=== PATIENT | female | born 1925 | race Caucasian/White ===

== ENCOUNTER → 2017-06-08 | Outpatient (CLI) | payer MEDICARE, OTHER ==
[~2017-06-08] MED LIST: ADULT LOW DOSE81 MG PO; AMLODIPINE; AMOXIL 875 MG875 M1 PO; APAP500; ATENOLOL 50 MG50 M1 PO; ATENOLOL 50MG T50 MG PO; AUGMENTIN 875-1 EACH PO; CEFDINIR300 MG PO; CENTRUM SILVER1 EAC1 PO; CENTRUM SILVER1 EAC4 PO; CIPROFLOXACIN500 M1 PO; CIPROFLOXACIN500 M3 PO; CITRACAL + D C1 EACH PO; CITRUCEL500 MG PO; CRANBERRY200 MG PO; DARVOCET-N 1001 EACH PO; FISH OIL 1,001000 M1 PO; FISHOIL; FISHOIL PO; FLAGYL500 MG; FLAGYL500 MG PO; GABAPENTIN; GINKGO BILOBA120 MG PO; GLUCOPHAGE XR500 MG PO; HYDROCODON-ACE1 EAC7 PO; HYDROCODONE-AP1 EAC6 PO; K-DUR10 ME1 PO; KLOR-CON; LEVAQUIN 250 M250 MG PO; LEVOTHROID; LEVOTHYROXIN0.075 MG PO; LEVOTHYROXINE0.05 MG PO; LISINOPRIL; LISINOPRIL40 MG PO; LUTEIN20 M1 PO; LYRICA150 MG PO; MACROBID; MACRODANTIN50 MG PO; MAGNES; METFORMIN; MUCINEX600 MG PO; NEURONTIN 300300 M1 PO; NEXIUM40 MG PO; NORCO 5-325 TA1 EACH PO; NORVASC 5 MG TAB5 MG PO; PREDNISONE 10 M10 M1 PO; PREDNISONE 10 M10 MG PO; PROBIOTIC1 EAC1 PO; PROTONIX 20 MG20 M1 PO; RANITIDINE 150150 M1 PO; SIMVASTATIN; TYLENOL PM EX-1 EACH PO; VENTOLIN HFA INH8 GM INH; VITAMIN B-1100 M1 PO; VITAMIN B-122000 MC1 PO; VITAMIN D; VITAMIN D5000 UNI1 PO; ZOCOR 20 MG TAB20 M1 PO; ZOFRAN 4 MG ORAL4 M1 DIS; ZYVOX600 MG PO
== END ==
LOC: M.RAD 15:24
DX: R05 Cough (principal); R06.02 Shortness of breath; J18.9 Pneumonia, unspecified organism; J44.9 Chronic obstructive pulmonary disease, unspecified

== ENCOUNTER → 2017-06-29 | Outpatient (CLI) | payer MEDICARE, OTHER | LOC: M.RAD 13:31 | DX: J43.9 Emphysema, unspecified (principal) ==

== ENCOUNTER → 2017-08-06 | Outpatient (CLI) | payer MEDICARE, OTHER | LOC: M.RAD 13:43 | DX: I70.0 Atherosclerosis of aorta (principal); J18.9 Pneumonia, unspecified organism; J98.2 Interstitial emphysema ==

== ENCOUNTER 2017-08-22 16:24 | Inpatient (IN) | payer MEDICARE, OTHER ==
[~2017-08-22] VITALS: Ht 152.4 cm; Wt 58.1 kg
[~2017-08-22 16:24] MED LIST changes: -AMOXIL 875 MG875 M1 PO; -AUGMENTIN 875-1 EACH PO; -CEFDINIR300 MG PO; -LUTEIN20 M1 PO; -MUCINEX600 MG PO; -PREDNISONE 10 M10 MG PO; -PROBIOTIC1 EAC1 PO; -PROTONIX 20 MG20 M1 PO; -RANITIDINE 150150 M1 PO; -TYLENOL PM EX-1 EACH PO; -VENTOLIN HFA INH8 GM INH; -VITAMIN B-1100 M1 PO; -VITAMIN B-122000 MC1 PO; -VITAMIN D5000 UNI1 PO; -ZYVOX600 MG PO
[2017-08-22 16:30] VITALS: BP 130/58
[2017-08-22] MEDS ORDERED: RANITIDINE 150150 M1 PO (16:37)
[2017-08-22] MEDS ORDERED: PROBIOTIC1 EAC1 PO (16:54)
[2017-08-22] MEDS ORDERED: LUTEIN20 M1 PO (16:54)
[2017-08-22] MEDS ORDERED: VITAMIN B-122000 MC1 PO (16:56)
[2017-08-22] MEDS ORDERED: VITAMIN D5000 UNI1 PO (16:57)
[2017-08-22] MEDS ORDERED: VITAMIN B-1100 M1 PO (16:57)
[2017-08-22] MEDS ORDERED: TYLENOL PM EX-1 EACH PO (16:58)
[2017-08-22 17:07] LABS: ABSOLUTE EOSINOPHILS 0.2 thou/uL (0.0-0.7); ABSOLUTE LYMPHOCYTES 2.1 thou/uL (0.8-5.3); ABSOLUTE MONOCYTES 0.9 thou/uL (0.0-1.2); ABSOLUTE NEUTROPHILS 11.9 thou/uL (1.6-8.1); BASOPHILS 0.2 %; EOSINOPHILS 1.3 %; HEMATOCRIT 44.3 % (37.0-47.0); HEMOGLOBIN 14.3 gm/dL (12.0-15.0); LYMPHOCYTES 13.7 %; MCH 30.6 pg (26.0-34.0); MCHC 32.2 g/dL (28.0-37.0); MCV 94.9 fL (80.0-100.0); MONOCYTES 6.2 %; MPV 7.4 fl. (7.2-11.1); NUCLEATED RBCS 0 /100WBC; PLATELET COUNT* 172 thou/uL (150-400); POLYS 78.6 %; RBC 4.67 mil/uL (4.20-5.00); RDW-CV 13.7 % (10.5-14.5); WBC 15.2 thou/uL (4.0-11.0)
[2017-08-22 17:13] LABS: APTT 27.8 Seconds (25.0-31.3)
[2017-08-22 17:14] LABS: ANION GAP 4 mmol/L (7-16); BUN 20 mg/dL (7-18); CALCIUM 8.8 mg/dL (8.5-10.1); CHLORIDE 105 mmol/L (98-107); CO2 34 mmol/L (21-32); CREATININE 0.9 mg/dL (0.6-1.3); GLUCOSE 131 mg/dL (70-99); POTASSIUM 4.4 mmol/L (3.5-5.1); SODIUM 143 mmol/L (136-145)
[2017-08-22 17:16] LABS: BE 3.6 mmol/L (-2 to +3); HCO3 29.6 mmol/L (22.0-26.0); pH 7.388 (7.340-7.450)
[2017-08-22 17:20] LABS: PCO2 50.3 mmHg (35.0-45.0)
[2017-08-22] MEDS ORDERED: PROTONIX 20 MG20 M1 PO (17:22)
[2017-08-22 17:25] LABS: ALBUMIN 3.7 g/dL (3.4-5.0); ALKALINE PHOSPHATASE 58 U/L (46-116); MAGNESIUM 1.9 mg/dL (1.8-2.4); NT-PRO BRAIN NAT PEPTIDE 321 pg/mL (<300); SGOT 17 U/L (15-37); SGPT 21 U/L (30-65); TOTAL BILIRUBIN 0.9 mg/dL (<0.1-1.0); TOTAL PROTEIN 6.6 g/dL (6.4-8.2); TROPONIN-I LEVEL <0.06 ng/mL (<0.06)
[2017-08-22 19:37] VITALS: BP 114/57
[2017-08-22 20:00] VITALS: BP 127/61
--- NOTE | 2017-08-22 20:00 | NUR ---
ADMITTED FROM ER. DGT AT BEDSIDE AND ASSISTING WITH ADMISSION. BIPAP ON AT 50% FIO2, NO ACUTE RESP DISTRESS AT THIS TIME WITH TRANSFER. TELEMETRY ON SHOWING SR. SEE ADMISSION ASSESSMENT AND HX. WILL CONT TO MONITOR AND ASSIST NEEDED.
[2017-08-22 23:56] VITALS: BP 117/52
[2017-08-23 03:52] VITALS: BP 112/58
--- NOTE | 2017-08-23 06:51 | NUR ---
SLEPT WELL. TURNS SELF IN BED FOR COMFORT. TOLERATED BIPAP BUT ASKING FOR IT TO BE OFF THIS AM. ENCOURAGED A LITTLE WHILE LONGER TO BKFT. ASSISTED TO BSC, VOIDING WITHOUT DIFFICULTY. TELEMETRY CONT TO SHOW SR. HS GOALS ACHIEVED OF REST AND SAFETY. HOURLY ROUNDING OBSERVED.
[2017-08-23 08:30] VITALS: BP 128/60
--- NOTE | 2017-08-23 11:13 | EKG ---
[place] [address] ELECTROCARDIOGRAM REPORT Name: FOUZIA HIGHTOWER Room: [address] [place] .R.#: [id number] Admission: 08/22/17 Attend Phys: Camden Leyva MD Discharge: Date of : [birth year] Report #: [id number] THIS REPORT FOR: //name// [facility] ED Test Date: 2017-08-22 Test Time: 16:59:17 Pat Name: FOUZIA HIGHTOWER Department: Room: Gender: Juvenile [employer]al Officer: Nirav GUADALUPE : [id number] Requested By: Iona Dubon Order Number: [id number] MD: Rashawn Figueroa Measurements Intervals [place] Rate: 82 P: 37 OR: 236 QRS: 11 QRSD: 92 T: 61 QT: 381 QTc: 445 Interpretive Statements Sinus rhythm Prolonged OR interval Low voltage, precordial leads Consider anterior infarct Compared to ECG 04/09/2015 07:00:39 probable Myocardial infarct finding now present Electronically Signed On 08-23-2017 11:13:04 CDT by Rashawn Figueroa [email or web address] <ELECTRONICALLY SIGNED> By: Rashawn Figueroa MD, FACC 08/23/17 1113 [id number] Rashawn Figueroa MD, [facility] /EPI
--- NOTE | 2017-08-23 11:54 | NUR ---
Pt is A&O. Resides at home, dtr lives at home with her. Pt is independent with ADLs, though dtr does the cooking, cleaning and driving. Pt has been using a cane for mobility, but states that she plans to start using her walker. Pt wears home o2 continuously, provided through [employer]. Hx of HH, but does not recall the name of the agency. No hx of SNF. Supportive family that is available to assist as needed. Goal is to return home at dc, no needs anticipated, Pt stated "my family will be there with me." Following.
[2017-08-23 15:38] LABS: URINE BILIRUBIN NEGATIVE (Negative); URINE BLOOD NEGATIVE (Negative); URINE CLARITY CLEAR; URINE COLOR YELLOW; URINE GLUCOSE-RANDOM 1+ (Negative); URINE KETONES NEGATIVE (Negative); URINE LEUKOCYTES-REFLEX NEGATIVE (Negative); URINE PROTEIN NEGATIVE (Negative); URINE UROBILINOGEN 0.2 E.U./dl (0.2-1.0)
[2017-08-23 15:40] LABS: URINE NITRITE-REFLEX POSITIVE (Negative)
[2017-08-23 15:45] LABS: SQUAMOUS 4-10 Moderate /LPF (0-3)
[2017-08-23 15:46] LABS: CRYSTALS None Seen /LPF (None Seen); HYALINE CASTS 0-3 Few /LPF (None Seen); MUCUS None Seen strn/LPF (None Seen)
[2017-08-23 15:47] LABS: URINE WBC-REFLEX 6-15 Few /HPF (0-5)
[2017-08-23 15:48] LABS: URINE RBC None Seen /HPF (0-2); WBC CLUMPS Few (None Seen)
[2017-08-23 16:00] VITALS: BP 143/77
--- NOTE | 2017-08-23 16:34 | NUR ---
ASSUMED PT CARE AT 0700 PT IS ALERT AND ORIENTED X 4 PT IS UP WITH SBA PT IS A FALL RISK BED ALARM IS ON, PT DENIES PAIN OR SOA ON 5L/NC PT IS ON BIPAP AT HS, PT IS SR ON THE MONITOR, PT IS RECEIVING ANTIBIOTIC THERAPY, URINE SAMPLE DENT TO LAB, PT MRSA SPECIMEN SENT TO LAB PT IS IN ISOLATION, PT CODE STATUS DNR, WILL CONTINUE TO MONITOR
[2017-08-23 20:00] VITALS: BP 160/84
[2017-08-23 23:40] VITALS: BP 166/99
--- NOTE | 2017-08-24 03:33 | NUR ---
ASSUMED PT CRAE AT 1930, PT IS A&OX4, PT IS TRACING NSR ON THE MONITOR, WITH A 1DAVB. PT IS WAS ON 3L NC SATTING 91% RT BUMPED PT UP TO 4L NC NOW SATTING 93% PT DID NOT WEAR BIPAP THIS SHIFT. PT HAS EPISODE OF ANXIETY AND SOME TROUBLE BREATHING, PRN ANXIETY MEDICATION GIVEN WITH RELIEF. PT HAS IVF INFUSING PER JUN. PT IS ON ISOALTION FOR MRSA IN THE NARES. PT IS UP WITH ONE TO THE BSC. BED IN LOW POSITION, CALL LIGHT IN REACH, BED ALARM ON, YELLOW ARM BAND AND SOCKS IN PLACE, HOURLY ROUNDING COMPLETED FOR PT SAFETY. PT'S DAUGHTER IS REQUESTING THAT SOME RESPIRATORY TREATMENTS BE STARTED TO THE PT. THIS WILL BE PASSED ALONG TO DAY RN AND ROUNDING ISABEL.
[2017-08-24 03:47] VITALS: BP 126/82
[2017-08-24 04:45] LABS: HEMATOCRIT 41.6 % (37.0-47.0); HEMOGLOBIN 13.4 gm/dL (12.0-15.0); MCH 31.2 pg (26.0-34.0); MCHC 32.1 g/dL (28.0-37.0); MCV 97.2 fL (80.0-100.0); MPV 7.7 fl. (7.2-11.1); RBC 4.29 mil/uL (4.20-5.00); RDW-CV 13.9 % (10.5-14.5); WBC 13.2 thou/uL (4.0-11.0)
[2017-08-24 04:55] LABS: CALCIUM 8.7 mg/dL (8.5-10.1); CREATININE 0.6 mg/dL (0.6-1.3); POTASSIUM 3.6 mmol/L (3.5-5.1)
[2017-08-24 08:30] VITALS: BP 124/57
[2017-08-24 11:41] VITALS: BP 107/50
[2017-08-24 16:53] VITALS: BP 127/61
--- NOTE | 2017-08-24 16:58 | NUR ---
ASSUMED PT CARE AT 0700 PT IS ALERT AND ORIENTED X 4 PT IS UP WITH SBA PT IS A FALL RISK BED AND CHAIR ALARMS ARE ON, PT IS SR 1ST ON MONITOR, PT DENIES PAIN OR SOA ON 2L/NC, PT BECAME MORE CONFUSED AND UNSTEADY REASSESSED PT WHO ANSWERED QUESTIONS APPROPIATELY NO SIGNS OF CONFUSION NOTED, PT GIVEN ANTIBIOTICS, WILL CONTINUE TO MONITOR
[2017-08-24 20:00] VITALS: BP 155/106
[2017-08-24 23:52] VITALS: BP 143/69
--- NOTE | 2017-08-25 03:42 | NUR ---
PT ALERT ORIENTED. UP TO BSC WITH MAX ONE PERSON ASSIST. TELEMETRY SHOWS SR. O2 AT 3 LITERS NC. VSS. DENIES PAIN. WILL CONTINUE TO MONITOR.
[2017-08-25 04:00] VITALS: BP 134/93
[2017-08-25 04:50] LABS: HEMATOCRIT 41.1 % (37.0-47.0); HEMOGLOBIN 13.7 gm/dL (12.0-15.0); MCH 31.4 pg (26.0-34.0); MCHC 33.3 g/dL (28.0-37.0); MCV 94.2 fL (80.0-100.0); MPV 7.4 fl. (7.2-11.1); RBC 4.36 mil/uL (4.20-5.00); RDW-CV 13.8 % (10.5-14.5); WBC 9.2 thou/uL (4.0-11.0)
[2017-08-25 05:06] LABS: CALCIUM 8.7 mg/dL (8.5-10.1); CREATININE 0.6 mg/dL (0.6-1.3); MAGNESIUM 1.9 mg/dL (1.8-2.4); POTASSIUM 3.4 mmol/L (3.5-5.1)
[2017-08-25 08:00] VITALS: BP 127/62
[2017-08-25 11:22] VITALS: BP 126/91
--- NOTE | 2017-08-25 13:05 | NUR ---
ASSUMED PT CARE AT 0730, FULL ASSESMENT DONE CHARTED. PT A/O X4, C/O HIP PAIN, IS WANTING TO GO HOME. PT SPOKE TO , NO DISCHARGE AT THIS TIME. PT C/O NAUSEA AFTER AM MEDS, ZOFRAN GIVEN. PT USING CALL LIGHT APPROPRIATLY, FALL PRECATIONS IN PLACE, CALL LIGHT IN REACH. WILL CONTINUE WITH PLAN OF CARE.
--- NOTE | 2017-08-25 14:07 | NUR ---
Pt wants to use [employer] at or.
[2017-08-25 15:19] VITALS: BP 117/59
[2017-08-25 20:00] VITALS: BP 125/75
[2017-08-25 23:45] VITALS: BP 115/45
--- NOTE | 2017-08-26 02:34 | NUR ---
PT ALERT ORIENTED. INITALLY ON 3 LITERS HIGH FLOW NC. AT MN PT'S O2 SAT 84% ON 3 LITERS. O2 TITRATED UP PER RT TO 8 LITERS WITH O2 SAT 92% WILL ATTEMPT TO TITRATE DOWN. TELEMETRY SHOWS SR.
[2017-08-26 04:23] VITALS: BP 133/63
[2017-08-26 05:08] LABS: CALCIUM 8.2 mg/dL (8.5-10.1); CREATININE 0.7 mg/dL (0.6-1.3); MAGNESIUM 1.8 mg/dL (1.8-2.4); POTASSIUM 3.8 mmol/L (3.5-5.1)
[2017-08-26 07:53] VITALS: BP 123/63
--- NOTE | 2017-08-26 09:14 | NUR ---
ASSUMED CARE OF PT THIS AM AROUND 0715- SUPERVISOR WEBBING IN PLACE ORDERED, TRACING SR WITH 1ST DEGREE BLOCK- UPON ASSESSMENT PT NOTED TO BE RESTING IN BED- PT A&O X4- CONTINENT OF BOWEL AND BLADDER- ASSIST X1 WITH TRANSFERS USING RW TO BEDSIDE COMMODE- DIMINISHED LUNG SOUNDS, RESP EVEN AND UN-LABORED- VSS, O2 SAT 92% ON 8L VIA NC- DYSPNEA NOTED ON EXERTION- ABDOMEN SOFT/ROUND/NON-TENDER, BS X4 QUADS- PT NOTED TO HAVE LARGE BM THIS AM- IV NOTED RIGHT FA INTACT AND SL- IV ABT GIVEN THIS AM WITH NO ADVERSE REACTIONS TO NOTE- GOOD PO INTAKE NOTED THIS AM WITH BREAKFAST- BS MONITORED PRESCIBED- ISOLATION IN PLACE AND MAINTAINED INDICATED R/T MRSA OF NARES- DAUGHTER AT BEDSIDE THIS AM VISITING- PT RATES PAIN 6/10 TO BACK, RELIEF EFFECTIVE WITH REPOSITIONING- CALL LIGHT AND PERSONAL BELONGINGS WITH IN REACH- HOURLY ROUNDS IN PLACE R/T SAFETY/NEEDS- ALL NEEDS MET AT THIS TIME-WCTM
--- NOTE | 2017-08-26 11:35 | NUR ---
Faxed initial referral to [facility], anticipate dc within next 1-2 days. DC orders will need to be faxed to [facility] at [phone].
[2017-08-26 11:56] VITALS: BP 107/47
[2017-08-26 15:14] VITALS: BP 131/60
--- NOTE | 2017-08-26 16:54 | NUR ---
PT CURRENLTY RESTING IN BED, WATCHING TV- FOOD CHECKERS AND CASHIERS SUPERVISOR IN PLACE ORDERED, TRACING SR WITH 1ST DEGREE- IV TO RIGHT FA INTACT AND SL- BS MONITORED PRESCIBED, GOOD PO INTAKE NOTED WITH MEALS- PT/OT ORDERS INTIATED TO INCREASE STRENGTH AND ENDURANCE- VANC AND AZITHROMYCIN NOTED TO BE D/C'D THIS SHIFT- O2 PER NS INDICATED- ISOLATION MAINTAINED INDICATED- DENIES ANY C/O PAIN/DISCOMFORT AT THIS TIME- CALL LIGHT AND PERSONAL BELONGINGS WITH IN REACH- ALL NEEDS MET AT THIS TIME-WCTM
[2017-08-26 20:00] VITALS: BP 132/78
[2017-08-27] VITALS (7 sets, daily range): BP systolic 120–154; BP diastolic 52–76
--- NOTE | 2017-08-27 05:26 | NUR ---
PT CARE ASSUMED AFTER REPORT. ASSESSMENT COMPLETE. SR/1ST DEGREE ON MONITOR. UP WITH ASSIST TO BSC. FALL PRECAUTIONS IN PLACE INCLUDING BED ALARM. PRN PAIN MEDICATION GIVEN PER PT REQUEST. O2 3L NC. SLEEP STUDY OVERNIGHT. CALL LIGHT IN CRISTIANO. BED IN LOWEST POSITION. PROGRESSING TOWARDS GOALS.
[2017-08-27] MEDS ORDERED: CEFDINIR300 MG PO (08:16)
[2017-08-27] MEDS ORDERED: VENTOLIN HFA INH8 GM INH (08:16)
[2017-08-27] MEDS ORDERED: ZYVOX600 MG PO (08:16)
[2017-08-27] MEDS ORDERED: MUCINEX600 MG PO (08:16)
--- NOTE | 2017-08-27 12:29 | NUR ---
JENNA discussed dc plan for home today with pt and pt dtr in law. Pt and pt dtr in law in agreement with HH services; pt had told Dr Leyva in the morning that she thought maybe she did not need HH services but pt and pt family changed their minds and felt it would be beneficial and acceptable. Pt nurse notified Dr Leyva who agreed to orders. JENNA faxed orders and med list to pt choice [facility] [phone] and ph [phone]. JENNA spoke with intake/Latrece who confirmed acceptance and nurse order added, nurse to meet with pt tomorrow. Pt qualifies for continued oxygen at 3L. JENNA called [facility] [place] at [phone] and since pt was previously on 2L, JENNA sent updated order for 3L oxygen and the testing at fax [phone]. Pt family to provide pt ride home. No other dc needs expressed at this time.
--- NOTE | 2017-08-27 14:33 | NUR ---
PT. DISCHARGED TO HOME PRIOR TO O.T. EVALUATION. PLEASE ORDER FURTHER O.T. SERVICES IF NEEDED.
--- NOTE | 2017-08-27 19:22 | NUR ---
ORDER RECEIVED TO JANNET EWING HOME WITH DAUGHTER. MED REC, MEDICATION EDCAUTION, STROKE EDUCATION, AND NEED FOR FOLLOW UP APPOINTMENTS COVERED AND STATED UNDERSTOOD BY PATIENT. ORDER RECEIVED FOR HOME HEALHT AND PORTABLE OXYGEN AT 3L FOR REST AND AMBULATION. HOURLY ROUNDING COMPLETD FOR PATIENT SAFETY AND PATIENT HAS PROGRESSED TOWARDS GOALS. DC TIME OF 13:30.
[2018-02-14] MEDS ORDERED: AMOXIL 875 MG875 M1 PO (10:35)
[2018-02-16] MEDS ORDERED: PREDNISONE 10 M10 MG PO (12:34)
[2018-02-16] MEDS ORDERED: AUGMENTIN 875-1 EACH PO (12:35)
== END 2017-08-27 13:10 | disposition home or self-care (01) | DRG 871 ==
LOC: M.ERS 16:24 → M.2W 18:09 → M.TBA-ER 18:09 → M.2W 19:45
PROVIDERS: Personal Emergency Response Attendant; ADMIT Internal Medicine
DX: A41.9 Sepsis, unspecified organism (principal); J96.21 Acute and chronic respiratory failure with hypoxia; J18.1 Lobar pneumonia, unspecified organism; Z96.1 Presence of intraocular lens; E11.40 Type 2 diabetes mellitus with diabetic neuropathy, unspecified; M81.0 Age-related osteoporosis without current pathological fracture; E78.5 Hyperlipidemia, unspecified; K21.9 Gastro-esophageal reflux disease without esophagitis; E05.90 Thyrotoxicosis, unspecified without thyrotoxic crisis or storm; Z66 Do not resuscitate; I10 Essential (primary) hypertension; J44.9 Chronic obstructive pulmonary disease, unspecified; Z85.828 Personal history of other malignant neoplasm of skin; Z90.49 Acquired absence of other specified parts of digestive tract; Z98.42 Cataract extraction status, left eye; Z98.41 Cataract extraction status, right eye; Z85.3 Personal history of malignant neoplasm of breast; Z90.710 Acquired absence of both cervix and uterus; Z86.711 Personal history of pulmonary embolism; Z79.899 Other long term (current) drug therapy; Z79.82 Long term (current) use of aspirin; Z88.2 Allergy status to sulfonamides; Z88.8 Allergy status to other drugs, medicaments and biological substances; Z22.322 Carrier or suspected carrier of Methicillin resistant Staphylococcus aureus